=== PATIENT | male | born 2000 | race African-American/Black ===

== ENCOUNTER 2022-11-11 12:12 | Emergency (ER) | payer BC, MEDICAID ==
[2022-11-11] MEDS ORDERED: Ondansetron PF 4 MG/2 ML Vial ONE (12:31)
[2022-11-11] MEDS ORDERED: Ondansetron ODT 4 MG TAB ONE (12:38)
== END 2022-11-11 13:15 | disposition home or self-care (01) ==
LOC: CSHERS 12:12
DX: R11.10 Vomiting, unspecified (principal); F17.290 Nicotine dependence, other tobacco product, uncomplicated
CPT/HCPCS: 99283; J2405; Q0162

== ENCOUNTER 2024-09-11 06:23 | Emergency (ER) | payer BC, SELFPAY ==
[2024-09-11 06:51] LABS: #Basophils 0.04 10x3/uL (0.0-0.2); #Eosinophils 0.06 10x3/uL (0.0-0.5); #Monocytes 1.71 10x3/uL (0.0-1.1); #Neutrophils 16.33 10x3/uL (1.5-8.4); %Basophils 0.2 % (0.0-2.0); %Eosinophils 0.3 % (0.0-6.0); %Lymphocytes 7.1 % (18.0-47.0); %Monocytes 8.7 % (0.0-10.0); %Neutrophils 83.2 % (40.0-75.0); Hematocrit 40.8 % (38.8-50.0); Hemoglobin 14.5 g/dL (13.5-17.5); Mean Corpuscular Hemoglobin 31.5 pg (27.0-33.0); Mean Corpuscular Volume 88.5 fL (81.2-95.1); Platelet Count 280 10x3/uL (150-450); Red Blood Cell (RBC) Count 4.61 10x6/uL (4.32-5.72); White Blood Cell (WBC) Count 19.62 10x3/uL (3.5-10.5)
[2024-09-11 07:10] LABS: Anion Gap 18 mmol/L (10-20); BUN (Urea Nitrogen) 10 mg/dL (8.9-20.6); Calc. Creatinine Clearance 0 mL/min (70-130); Calcium 9.5 mg/dL (7.8-10.44); Carbon Dioxide 22 mmol/L (22-29); Chloride 103 mmol/L (98-107); Glucose 137 mg/dL (70-105); Potassium 3.7 mmol/L (3.5-5.1); Sodium 139 mmol/L (136-145)
[2024-09-11] MEDS ORDERED: Acetaminophen 500 MG TAB ONE (07:28)
[2024-09-11 07:59] LABS: Glucose, Urine (Dipstick) Normal (Negative); Leukocyte 100 (Negative); Protein, Urine (Dipstick) 15 mg/dl (Neg-Trace); Specific Gravity, Urine 1.005 (1.005-1.030)
[2024-09-11 08:01] LABS: CAUTI Indications for Culture Pelvic or flank pain
[2024-09-11 08:12] LABS: Bacteria/HPF Rare-Few HPF (None Seen); RBC/HPF None Seen HPF (0-3)
[2024-09-11 08:13] LABS: Urine Culture Reflex No No
[2024-09-11] MEDS ORDERED: cefTRIAXone (ROCEPHIN) 1 GM VIAL ONE (08:26)
[2024-09-11] MEDS ORDERED: metroNIDAZOLE 500 MG (100 mL) BAG ONE (08:42)
[2024-09-11] MEDS ORDERED: Lidocaine 1% w/Epinephrine 1:200K 30 ML VIAL ONE (09:48)
[2024-09-11] MEDS ORDERED: Vancomycin 1.5 GRAM/300 ML BAG 1.5 GM in Premix 1 BAG IVPB SCH (10:00)
[2024-09-11] MEDS ORDERED: PROPOFOL 20 ML ONE (10:57)
[2024-09-11] MEDS ORDERED: Ketorolac Tromethamine 30 MG (1 mL) VIAL ONE (10:57)
[2024-09-11] MEDS ORDERED: Ondansetron PF 4 MG/2 ML Vial ONE (10:57)
[2024-09-11] MEDS ORDERED: Bupivacaine HCl 0.5%/Epinephrine 1:200,000/PF 30 ml Vial ONE (11:11)
[2024-09-11] MEDS ORDERED: Iopamidol 300 61% 100 ML VIAL FS ONE (11:52)
[2024-09-11] MEDS ORDERED: HYDROcodone/Acetaminophen 5/325 mg Tablet ONE (12:33)
== END 2024-09-11 11:19 | disposition admitted as inpatient to this hospital (09) ==
LOC: CSHERS 06:23
PROC: 0D9Q0ZZ Drainage of Anus, Open Approach (ICD-10-PCS; principal; 2024-09-11)
DX: K61.0 Anal abscess (principal); F17.290 Nicotine dependence, other tobacco product, uncomplicated
CPT/HCPCS: 74177; 80048; 81001; 83605; 85025; 86140; 87040; 96365; 96375; 96376; J0696; J1100; J1885; J2250; J2270; J2405; J2704; J3010; J3373; Q9967